=== PATIENT | female | born 1945 | race Caucasian/White ===

== ENCOUNTER 2020-05-13 14:27 | Outpatient (CLI) | payer MEDICARE, OTHER ==
[2020-05-14 05:36] LABS: SARS-CoV-2 PCR by NAA Not Detected (NotDetected)
== END 2020-05-13 14:28 | disposition home or self-care (01) ==
LOC: LABBT 14:27
PROVIDERS: ATTEND Orthopaedic Surgery
DX: Z01.818 Encounter for other preprocedural examination (principal); Z20.822 Contact with and (suspected) exposure to COVID-19
CPT/HCPCS: 93005; U0003; U0005; 87635; 93010

== ENCOUNTER 2020-05-16 06:24 | Day surgery (SDC) | payer MEDICARE, OTHER ==
[2020-05-15 09:47] VITALS: BMI 25.0
[2020-05-16] MEDS ORDERED: Midazolam HCl 2 mg/2 ml Vial ONE (06:45)
[2020-05-16] MEDS ORDERED: Fentanyl 100 MCG/2 ML VIAL ONE ×5 (06:45→11:51)
[2020-05-16] MEDS ORDERED: Lidocaine 1% w/Epinephrine 1:100K 20 ML VIAL ONE (07:03)
[2020-05-16] MEDS ORDERED: Bupivacaine 0.25% HCL 30 ML VIAL ONE (07:03)
[2020-05-16] MEDS ORDERED: Bupivacaine PF 0.5% 30 ML VIAL ONE (07:22)
[2020-05-16] MEDS ORDERED: Ondansetron PF 4 MG/2 ML Vial ONE (07:37)
[2020-05-16] MEDS ORDERED: Lidocaine 1% PF 5 ML VIAL ONE ×2 (07:37)
[2020-05-16] MEDS ORDERED: PROPOFOL 200 MG/20 ML VIAL ONE (07:37)
== END 2020-05-16 14:00 | disposition home or self-care (01) ==
LOC: SDC 06:24
PROVIDERS: ATTEND Orthopaedic Surgery
PROC: 0PSH04Z Reposition Right Radius with Internal Fixation Device, Open Approach (ICD-10-PCS; principal; 2020-05-16)
DX: S52.531A Colles' fracture of right radius, initial encounter for closed fracture (principal); E78.5 Hyperlipidemia, unspecified; J44.9 Chronic obstructive pulmonary disease, unspecified; I11.0 Hypertensive heart disease with heart failure; I50.9 Heart failure, unspecified; I69.322 Dysarthria following cerebral infarction; I69.331 Monoplegia of upper limb following cerebral infarction affecting right dominant side; E03.9 Hypothyroidism, unspecified; F17.210 Nicotine dependence, cigarettes, uncomplicated; Z85.3 Personal history of malignant neoplasm of breast; Z79.811 Long term (current) use of aromatase inhibitors; Z79.82 Long term (current) use of aspirin; Z79.899 Other long term (current) drug therapy; W18.30XA Fall on same level, unspecified, initial encounter
CPT/HCPCS: 25608; 73100; 76000; C1713 ×2; J0690; J2250; J2405; J2704; J3010; S0020

== ENCOUNTER 2022-12-09 22:59 | Inpatient (IN) | payer MEDICARE, OTHER ==
[2022-12-09] MEDS ORDERED: Morphine 4 MG/ML VIAL ONE (23:52)
[2022-12-09] MEDS ORDERED: Ondansetron PF 4 MG/2 ML Vial ONE (23:52)
[2022-12-10 00:26] LABS: #Monocytes 0.4 thou/uL (0.11-0.59); #Neutrophils 3.4 thou/uL (1.40-6.50); %Basophils 0.4 % (0.0-1.0); %Eosinophils 0.6 % (0.0-10.0); %Lymphocytes 23.7 % (21.0-51.0); %Monocytes 8.3 % (0.0-10.0); %Neutrophils 66.8 % (42.0-75.0); Hematocrit 31.5 % (36.0-47.0); Hemoglobin 10.5 g/dL (12.0-16.0); Mean Corpuscular HGB CONC 33.3 g/dL (32.0-36.0); Mean Corpuscular Hemoglobin 31.3 pg (27.0-31.0); Platelet Count 151 10x3/uL (130-400); RBC Distribution Width 15.3 % (11.5-14.5); Red Blood Cell (RBC) Count 3.35 mill/uL (4.20-5.40); White Blood Cell (WBC) Count 5.2 10x3/uL (4.8-10.8)
[2022-12-10 00:49] LABS: INR-International Normal Ratio 1.2; Prothrombin Time 15.4 sec (12.0-14.7)
[2022-12-10 00:51] LABS: PTT 31.9 sec (22.9-36.1)
[2022-12-10] MEDS ORDERED: Ketorolac Tromethamine 30 MG/ML VIAL ONE (00:51)
[2022-12-10 00:54] LABS: ALT (SGPT) 18 U/L (8-55); AST (SGOT) 24 U/L (5-34); Albumin 2.8 g/dL (3.4-4.8); Alkaline Phosphatase 74 U/L (40-110); Anion Gap 13 mmol/L (10-20); BUN (Urea Nitrogen) 22 mg/dL (9.8-20.1); Bilirubin, Total 0.6 mg/dL (0.2-1.2); Calc. Creatinine Clearance 0 mL/min (70-130); Calcium 9.7 mg/dL (7.8-10.44); Carbon Dioxide 24 mmol/L (23-31); Chloride 104 mmol/L (98-107); Estimated GFR 57; Globulin 5.4 g/dL (2.4-3.5); Glucose 97 mg/dL (83-110); Potassium 3.7 mmol/L (3.5-5.1); Protein, Total 8.2 g/dL (5.8-8.1); Sodium 137 mmol/L (136-145)
[2022-12-10] MEDS ORDERED: Ipratropium/Albuterol 3 ML NEB NEB PRN (01:26)
[2022-12-10] MEDS ORDERED: Ondansetron ODT 4 MG TAB PO PRN (01:26)
[2022-12-10] MEDS ORDERED: Morphine 2 MG/ML VIAL SLOW IVP PRN (01:26)
[2022-12-10] MEDS ORDERED: Ondansetron PF 4 MG/2 ML Vial IVP PRN (01:26)
[2022-12-10] MEDS ORDERED: traMADol HCl 50 MG TAB PO PRN (01:29)
[2022-12-10] MEDS ORDERED: Acetaminophen 325 MG TAB PO SCH (01:30)
[2022-12-10] MEDS: Acetaminophen 500 MG TAB PO SCH ×4 (03:50→21:15)
[2022-12-10] MEDS: Sodium Chloride 0.9% 1,000 ML IV SCH ×2 (03:51→12:43)
[2022-12-10 04:26] VITALS: BMI 20.5
[2022-12-10 05:30] LABS: #Eosinphils 0.1 thou/uL (0.0-0.7); #Monocytes 0.5 thou/uL (0.11-0.59); #Neutrophils 3.2 thou/uL (1.40-6.50); %Basophils 0.4 % (0.0-1.0); %Eosinophils 1.4 % (0.0-10.0); %Lymphocytes 26.8 % (21.0-51.0); %Monocytes 8.9 % (0.0-10.0); %Neutrophils 62.1 % (42.0-75.0); Hematocrit 30.9 % (36.0-47.0); Mean Corpuscular HGB CONC 32.4 g/dL (32.0-36.0); Mean Corpuscular Hemoglobin 31.3 pg (27.0-31.0); Mean Platelet Volume 10.3 fL (7.4-10.4); Platelet Count 147 10x3/uL (130-400); RBC Distribution Width 15.4 % (11.5-14.5); Red Blood Cell (RBC) Count 3.19 mill/uL (4.20-5.40); White Blood Cell (WBC) Count 5.1 10x3/uL (4.8-10.8)
[2022-12-10 05:48] LABS: INR-International Normal Ratio 1.2; Prothrombin Time 16.1 sec (12.0-14.7)
[2022-12-10 05:49] LABS: PTT 31.2 sec (22.9-36.1)
[2022-12-10 05:59] LABS: Anion Gap 12 mmol/L (10-20); BUN (Urea Nitrogen) 22 mg/dL (9.8-20.1); Calc. Creatinine Clearance 45 mL/min (70-130); Calcium 9.6 mg/dL (7.8-10.44); Carbon Dioxide 24 mmol/L (23-31); Chloride 105 mmol/L (98-107); Estimated GFR 65; Glucose 85 mg/dL (83-110); Potassium 3.7 mmol/L (3.5-5.1); Sodium 137 mmol/L (136-145)
[2022-12-10] MEDS: traMADol HCl 50 MG TAB PO SCH ×4 (06:10→23:49)
[2022-12-10 06:40] LABS: Mean Corpuscular Volume 96.9 fl (78.0-98.0)
[2022-12-10] MEDS ORDERED: CEFAZOLIN 2 GM in Sodium Chloride 0.9% 100 ML IVPB SCH (07:30)
[2022-12-10] MEDS: Famotidine/PF 20 mg/2ml Vial SLOW IVP SCH ×2 (09:11→21:16)
[2022-12-10] MEDS: Senokot S 8.6-50 MG TAB PO SCH ×2 (09:12→21:24)
[2022-12-10] MEDS: Polyethylene Glycol 3350 17 GM Packet PO SCH (09:14)
[2022-12-10] MEDS: Gabapentin 100 MG CAP PO SCH ×2 (09:14→21:15)
[2022-12-10 10:57] LABS: Bacteria/HPF 4+ HPF (None Seen); Bilirubin Negative (Negative); Blood, Urine Trace (Negative); CAUTI Indications for Culture Alt mental st,lethar; Clarity Turbid (Clear); Glucose, Urine (Dipstick) Normal (Negative); Ketone, Urine Negative (Negative); Leukocyte 25 Leu/uL (Negative); Nitrite 2+ (Negative); Protein, Urine (Dipstick) Negative (Neg-Trace); RBC/HPF 0-3 HPF (0-3); Specific Gravity, Urine 1.024 (1.002-1.036); Squamous Epithelial 0-3 HPF (0-3); Urobilinogen Normal mg/dL (Less than 2); pH, Urine 5.5 (5.0-9.0)
[2022-12-10 11:01] LABS: Urine Culture Reflex Yes Yes
[2022-12-10] MEDS: cefTRIAXone\\ROCEPHIN 1 GM in Sodium Chloride 0.9% 100 ML IVPB SCH (12:43)
[2022-12-10] MEDS ORDERED: fentaNYL PF 100 MCG/2 ML SYRINGE ONE (17:38)
[2022-12-10] MEDS ORDERED: CEFAZOLIN 2 GM VIAL ONE (17:48)
[2022-12-10] MEDS ORDERED: Sodium Chloride 0.9% 100 ML ONE (17:48)
[2022-12-10] MEDS ORDERED: NEOSTIGMINE 3 MG/3 ML SYR 3 MG/3 ML SYRINGE ONE (18:01)
[2022-12-10] MEDS ORDERED: Rocuronium Bromide 10 MG/ML (10ML VIAL) ONE (18:01)
[2022-12-10] MEDS ORDERED: Glycopyrrolate 0.2 MG/ML 5 ML SYRINGE ONE (18:01)
[2022-12-10] MEDS ORDERED: PROPOFOL 200 MG/20 ML VIAL ONE (18:01)
[2022-12-10] MEDS ORDERED: Lidocaine 1% PF 5 ML VIAL ONE (18:01)
[2022-12-10] MEDS ORDERED: Ondansetron PF 4 MG/2 ML Vial ONE (18:01)
[2022-12-11] MEDS: Acetaminophen 500 MG TAB PO SCH ×4 (02:46→21:19)
[2022-12-11] MEDS: CEFAZOLIN 2 GM in Sodium Chloride 0.9% 100 ML IVPB SCH ×3 (02:53→17:16)
[2022-12-11] MEDS: traMADol HCl 50 MG TAB PO SCH ×3 (05:22→17:17)
[2022-12-11 06:42] LABS: #Monocytes 0.4 thou/uL (0.11-0.59); #Neutrophils 5.7 thou/uL (1.40-6.50); %Basophils 0.1 % (0.0-1.0); %Lymphocytes 9.8 % (21.0-51.0); %Monocytes 5.8 % (0.0-10.0); Hemoglobin 8.1 g/dL (12.0-16.0); Mean Corpuscular HGB CONC 32.4 g/dL (32.0-36.0); Mean Corpuscular Hemoglobin 31.8 pg (27.0-31.0); Mean Platelet Volume 10.6 fL (7.4-10.4); Platelet Count 131 10x3/uL (130-400); RBC Distribution Width 15.7 % (11.5-14.5); Red Blood Cell (RBC) Count 2.55 mill/uL (4.20-5.40); White Blood Cell (WBC) Count 6.7 10x3/uL (4.8-10.8)
[2022-12-11] MEDS: Ferrous Sulfate 325 MG TAB PO SCH ×2 (08:56→16:36)
[2022-12-11] MEDS: Ascorbic Acid 500 mg Chewable Tablet PO SCH ×2 (08:56→21:19)
[2022-12-11] MEDS: Gabapentin 100 MG CAP PO SCH ×2 (08:56→21:20)
[2022-12-11] MEDS: Famotidine/PF 20 mg/2ml Vial SLOW IVP SCH ×2 (08:57→21:20)
[2022-12-11] MEDS: Polyethylene Glycol 3350 17 GM Packet PO SCH (08:57)
[2022-12-11] MEDS: Senokot S 8.6-50 MG TAB PO SCH ×2 (08:57→21:20)
[2022-12-11] MEDS ORDERED: Aspirin 81 mg Enteric Coated Tablet PO SCH (09:00)
[2022-12-11] MEDS: cefTRIAXone\\ROCEPHIN 1 GM in Sodium Chloride 0.9% 100 ML IVPB SCH (12:44)
[2022-12-12] MEDS: traMADol HCl 50 MG TAB PO SCH ×5 (01:40→23:42)
[2022-12-12] MEDS: Acetaminophen 500 MG TAB PO SCH ×4 (03:22→21:46)
[2022-12-12 08:02] LABS: #Monocytes 0.5 thou/uL (0.11-0.59); #Neutrophils 3.6 thou/uL (1.40-6.50); %Basophils 0.2 % (0.0-1.0); %Eosinophils 0.7 % (0.0-10.0); %Lymphocytes 30.2 % (21.0-51.0); %Monocytes 7.8 % (0.0-10.0); %Neutrophils 60.8 % (42.0-75.0); Hematocrit 21.2 % (36.0-47.0); Hemoglobin 6.9 g/dL (12.0-16.0); Mean Corpuscular HGB CONC 32.5 g/dL (32.0-36.0); Mean Corpuscular Hemoglobin 31.2 pg (27.0-31.0); Mean Corpuscular Volume 95.9 fl (78.0-98.0); Mean Platelet Volume 10.4 fL (7.4-10.4); Platelet Count 136 10x3/uL (130-400); RBC Distribution Width 15.5 % (11.5-14.5); Red Blood Cell (RBC) Count 2.21 mill/uL (4.20-5.40); White Blood Cell (WBC) Count 5.9 10x3/uL (4.8-10.8)
[2022-12-12] MEDS: Polyethylene Glycol 3350 17 GM Packet PO SCH (10:35)
[2022-12-12] MEDS: Senokot S 8.6-50 MG TAB PO SCH ×2 (10:37→21:40)
[2022-12-12] MEDS: Ferrous Sulfate 325 MG TAB PO SCH ×2 (10:37→18:05)
[2022-12-12] MEDS: Gabapentin 100 MG CAP PO SCH ×2 (10:37→21:39)
[2022-12-12] MEDS: Famotidine/PF 20 mg/2ml Vial SLOW IVP SCH ×2 (10:38→21:40)
[2022-12-12] MEDS: Ascorbic Acid 500 mg Chewable Tablet PO SCH ×2 (10:38→21:40)
[2022-12-12] MEDS: cefTRIAXone\\ROCEPHIN 1 GM in Sodium Chloride 0.9% 100 ML IVPB SCH (11:16)
[2022-12-12 17:13] LABS: Mean Corpuscular HGB CONC 32.2 g/dL (32.0-36.0); Mean Corpuscular Hemoglobin 31.2 pg (27.0-31.0); Mean Corpuscular Volume 96.9 fl (78.0-98.0); Mean Platelet Volume 10.9 fL (7.4-10.4); Platelet Count 160 10x3/uL (130-400); RBC Distribution Width 16.2 % (11.5-14.5); Red Blood Cell (RBC) Count 3.21 mill/uL (4.20-5.40); White Blood Cell (WBC) Count 5.9 10x3/uL (4.8-10.8)
[2022-12-12 17:20] LABS: Hematocrit 31.1 % (36.0-47.0)
[2022-12-12] MEDS ORDERED: Nitrofurantoin Monohyd/M-Cryst 100 MG CAP PO SCH (21:00)
[2022-12-12] MEDS: Aspirin 81 mg Enteric Coated Tablet PO SCH (21:40)
[2022-12-13] MEDS: Acetaminophen 500 MG TAB PO SCH (03:03)
[2022-12-13] MEDS: traMADol HCl 50 MG TAB PO SCH (05:14)
[2022-12-13 07:38] LABS: #Eosinphils 0.1 thou/uL (0.0-0.7); #Monocytes 0.6 thou/uL (0.11-0.59); #Neutrophils 4.7 thou/uL (1.40-6.50); %Basophils 0.5 % (0.0-1.0); %Eosinophils 1.8 % (0.0-10.0); %Lymphocytes 17.6 % (21.0-51.0); %Monocytes 8.6 % (0.0-10.0); %Neutrophils 71.2 % (42.0-75.0); Hematocrit 28.8 % (36.0-47.0); Hemoglobin 9.5 g/dL (12.0-16.0); Mean Corpuscular Hemoglobin 30.9 pg (27.0-31.0); Mean Platelet Volume 10.9 fL (7.4-10.4); Platelet Count 152 10x3/uL (130-400); RBC Distribution Width 16.3 % (11.5-14.5); Red Blood Cell (RBC) Count 3.07 mill/uL (4.20-5.40); White Blood Cell (WBC) Count 6.7 10x3/uL (4.8-10.8)
[2022-12-13 07:42] LABS: Mean Corpuscular Volume 93.8 fl (78.0-98.0)
[2022-12-13] MEDS ORDERED: Famotidine 20 MG TAB PO SCH (09:00)
[2022-12-13] MEDS: Gabapentin 100 MG CAP PO SCH (11:01)
[2022-12-13] MEDS: Ascorbic Acid 500 mg Chewable Tablet PO SCH (11:05)
[2022-12-13] MEDS: Senokot S 8.6-50 MG TAB PO SCH (11:05)
[2022-12-13] MEDS: Aspirin 81 mg Enteric Coated Tablet PO SCH (11:05)
[2022-12-13] MEDS: Polyethylene Glycol 3350 17 GM Packet PO SCH (11:05)
[2022-12-13 13:00] VITALS: TEMP 98
[2022-12-13 17:38] VITALS: BP 89/54
[2022-12-14] MEDS ORDERED: Levothyroxine Sodium 75 MCG TAB PO SCH (06:00)
== END 2022-12-13 19:00 | disposition home or self-care (01) | DRG 522 ==
LOC: ERS 22:59 → SJJU 12-10 01:26
PROVIDERS: ADMIT Surgery; ATTEND Surgery
PROC: 0SRR0JZ Replacement of Right Hip Joint, Femoral Surface with Synthetic Substitute, Open Approach (ICD-10-PCS; principal; 2022-12-10)
PROC: 30233N1 Transfusion of Nonautologous Red Blood Cells into Peripheral Vein, Percutaneous Approach (ICD-10-PCS; 2022-12-12)
DX: S72.031A Displaced midcervical fracture of right femur, initial encounter for closed fracture (principal); N39.0 Urinary tract infection, site not specified; R47.01 Aphasia; E03.9 Hypothyroidism, unspecified; E78.00 Pure hypercholesterolemia, unspecified; I10 Essential (primary) hypertension; F17.210 Nicotine dependence, cigarettes, uncomplicated; W19.XXXA Unspecified fall, initial encounter; Y92.129 Unspecified place in nursing home as the place of occurrence of the external cause; Z86.73 Personal history of transient ischemic attack (TIA), and cerebral infarction without residual deficits; Z98.890 Other specified postprocedural states
CPT/HCPCS: 36415; 36430; 70450; 71045; 72170; 80053; 81001; 85025; 85610; 85730; 86850; 86900; 86901; 87077; 87086; 87186; 93005; 96374; 96375; 97139; C1713; C1776; G0390; J0696; J1885; J2270; J2272; J2405; J2704; J3490; J7050; P9016; S0028